=== PATIENT | male | born 1950 | race Caucasian/White ===

== ENCOUNTER 2020-04-03 19:23 | Emergency (ER) | payer OTHER ==
[~2020-04-03] VITALS: Ht 175.2 cm; Wt 90.7 kg
== END 2020-04-03 20:01 | disposition home or self-care (01) ==
LOC: ED 19:23
DX: T15.91XA Foreign body on external eye, part unspecified, right eye, initial encounter (principal); X58.XXXA Exposure to other specified factors, initial encounter; Y93.89 Activity, other specified; Y92.89 Other specified places as the place of occurrence of the external cause; Y99.8 Other external cause status

== ENCOUNTER 2021-06-06 19:00 | Emergency (ER) | payer OTHER ==
[~2021-06-06] VITALS: Ht 175.2 cm; Wt 90.7 kg
[2021-06-06] MEDS ORDERED: LIPITOR10 MG PO (20:15)
[2021-06-06] MEDS ORDERED: LISINOPRIL20 MG PO (20:15)
== END 2021-06-07 02:00 | disposition left against medical advice (07) ==
LOC: ED 19:00
DX: M79.89 Other specified soft tissue disorders (principal); Z53.21 Procedure and treatment not carried out due to patient leaving prior to being seen by health care provider

== ENCOUNTER → 2022-09-20 | Outpatient (CLI) | payer OTHER ==
[~2022-09-20] MED LIST: LIPITOR10 MG PO; LISINOPRIL20 MG PO
[2022-09-20 16:00] LABS: BASO # 0.1 10*3/uL (0.0-0.1); BASO % 0.8 % (0.0-1.0); EOS # 0.2 10*3/uL (0.0-0.4); EOS % 2.1 % (1.0-4.0); HEMATOCRIT 37.9 % (42.0-52.0); LYMPH # 1.5 10*3/uL (1.3-4.4); MEAN CELL VOLUME 84.8 fl (80.0-94.0); MEAN PLATELET VOLUME 10.2 fl (9.6-12.3); MONO # 0.6 10*3/uL (0.1-1.0); MONO % 8.5 % (3.0-9.0); NEUT # 4.9 10*3/uL (2.3-7.9); NEUT % 67.3 % (47.0-73.0); PLATELET COUNT AUTOMATED 236 10*3/uL (130-400); RED BLOOD COUNT 4.47 10*6/uL (4.50-5.90); WHITE BLOOD COUNT 7.3 10*3/uL (4.8-10.8)
[2022-09-20 16:16] LABS: ALKALINE PHOSPHATASE 83 U/L (46-116); BUN 19 mg/dl (9-23); CHLORIDE 108 mmol/L (98-107); CHOLESTEROL 106 mg/dL (<200); LDL CHOLESTEROL 28 mg/dL (9-159); POTASSIUM 3.9 mmol/L (3.4-5.1); SGPT/ALT 20 U/L (10-49); TOTAL PROTEIN 6.9 gm/dL (6.0-8.0)
[2022-09-21 15:07] LABS: ANTICARDIOLIPIN AB, IGG, QN <9 GPL U/mL (0-14); ANTICARDIOLIPIN AB, IGM, QN <9 MPL U/mL (0-12); CARDIOLIPIN AB IGA <9 APL U/mL (0-11)
[2022-09-22 15:06] LABS: BETA-2 GLYCOPROTEIN I AB,IGA <9 (0-25); BETA-2 GLYCOPROTEIN I AB,IGG <9 (0-20); BETA-2 GLYCOPROTEIN I AB,IGM <9 (0-32)
[2022-09-24 14:07] LABS: ACTIVATED PROTEIN C 2.9 ratio (2.2-3.5); ANTI-THROMBIN III ACTIVITY 129 % (75-135); LUPUS REFLEX INTERPRETATION Comment: (.); PLASMIN0GEN ACTIVITY 94 % (70-150); PROTEIN S, FREE 100 % (61-136)
== END | disposition home or self-care (01) ==
LOC: LAB 15:19
PROVIDERS: ATTEND Internal Medicine
DX: I82.402 Acute embolism and thrombosis of unspecified deep veins of left lower extremity (principal); E78.5 Hyperlipidemia, unspecified; D64.9 Anemia, unspecified

== ENCOUNTER → 2023-02-27 | Outpatient (CLI) | payer OTHER ==
[2023-02-27 08:26] LABS: BASO # 0.1 10*3/uL (0.0-0.1); BASO % 0.6 % (0.0-1.0); EOS # 0.1 10*3/uL (0.0-0.4); EOS % 1.5 % (1.0-4.0); HEMATOCRIT 38.1 % (42.0-52.0); LYMPH # 1.5 10*3/uL (1.3-4.4); LYMPH % 18.6 % (27.0-41.0); MEAN CELL VOLUME 84.7 fl (80.0-94.0); MEAN CORPUSCULAR HGB 28.7 pg (27.0-31.0); MEAN CORPUSCULAR HGB CONC 33.9 g/dl (33.0-37.0); MEAN PLATELET VOLUME 9.6 fl (9.6-12.3); MONO # 0.5 10*3/uL (0.1-1.0); MONO % 6.5 % (3.0-9.0); NEUT # 5.9 10*3/uL (2.3-7.9); NEUT % 72.4 % (47.0-73.0); PLATELET COUNT AUTOMATED 219 10*3/uL (130-400); RED CELL DISTRI WIDTH 13.1 % (0-14.5); WHITE BLOOD COUNT 8.2 10*3/uL (4.8-10.8)
[2023-02-27 09:05] LABS: ALKALINE PHOSPHATASE 83 U/L (46-116); BUN 25 mg/dl (9-23); CHLORIDE 109 mmol/L (98-107); CHOLESTEROL 114 mg/dL (<200); CPK 165 U/L (34-171); LDL CHOLESTEROL 43 mg/dL (9-159); POTASSIUM 4.1 mmol/L (3.4-5.1); SGPT/ALT 21 U/L (10-49); TOTAL PROTEIN 6.9 gm/dL (6.0-8.0); TRIGLYCERIDES 28 mg/dl (<150)
[2023-02-28 15:07] LABS: ANTICARDIOLIPIN AB, IGG, QN <9 GPL U/mL (0-14); ANTICARDIOLIPIN AB, IGM, QN <9 MPL U/mL (0-12); CARDIOLIPIN AB IGA <9 APL U/mL (0-11)
[2023-03-01 15:07] LABS: BETA-2 GLYCOPROTEIN I AB,IGA <9 (0-25); BETA-2 GLYCOPROTEIN I AB,IGG <9 (0-20); BETA-2 GLYCOPROTEIN I AB,IGM <9 (0-32)
[2023-03-04 15:06] LABS: ACTIVATED PROTEIN C 2.9 ratio (2.2-3.5); ANTI-THROMBIN III ACTIVITY 110 % (75-135); PLASMIN0GEN ACTIVITY 97 % (70-150); PROTEIN S, FREE 92 % (61-136); PTT-LA 27.6 sec (0.0-43.5)
[2023-03-04 16:08] LABS: LUPUS REFLEX INTERPRETATION Comment: (.)
== END | disposition home or self-care (01) ==
LOC: LAB 07:44
PROVIDERS: ATTEND Internal Medicine
DX: I10 Essential (primary) hypertension (principal); E78.5 Hyperlipidemia, unspecified; N40.1 Benign prostatic hyperplasia with lower urinary tract symptoms; I82.402 Acute embolism and thrombosis of unspecified deep veins of left lower extremity; M13.0 Polyarthritis, unspecified; E55.9 Vitamin D deficiency, unspecified; D64.9 Anemia, unspecified

== ENCOUNTER 2023-12-07 06:36 | Emergency (ER) | payer MEDICARE ==
[~2023-12-07] VITALS: Ht 175.2 cm; Wt 90.7 kg
[2023-12-07] MEDS ORDERED: TAMSULOSIN HCL0.4 MG PO (06:47)
[2023-12-07] MEDS ORDERED: CELECOXIB200 M1 PO (06:48)
[2023-12-07] MEDS ORDERED: XARELTO1 EACH PO (09:02)
== END 2023-12-07 09:22 | disposition home or self-care (01) ==
LOC: ED 06:36
DX: I82.411 Acute embolism and thrombosis of right femoral vein (principal); I82.431 Acute embolism and thrombosis of right popliteal vein; M10.9 Gout, unspecified; I10 Essential (primary) hypertension; Z88.5 Allergy status to narcotic agent

== ENCOUNTER 2024-03-19 02:08 | Emergency (ER) | payer MEDICARE ==
[~2024-03-19] VITALS: Ht 175.2 cm; Wt 88.5 kg
[~2024-03-19 02:08] MED LIST changes: +CELECOXIB200 M1 PO; +TAMSULOSIN HCL0.4 MG PO; +XARELTO1 EACH PO
[2024-03-19] MEDS ORDERED: LORazepam 1 MG TAB PO ONE (02:30)
== END 2024-03-19 02:37 | disposition home or self-care (01) ==
LOC: ED 02:08
DX: F41.9 Anxiety disorder, unspecified (principal); R20.0 Anesthesia of skin; M10.9 Gout, unspecified; I10 Essential (primary) hypertension; Z88.5 Allergy status to narcotic agent; Z90.49 Acquired absence of other specified parts of digestive tract; Z98.890 Other specified postprocedural states; Z86.718 Personal history of other venous thrombosis and embolism

== ENCOUNTER → 2024-05-07 | Outpatient (CLI) | payer MEDICARE ==
[2024-05-07 10:05] LABS: BASO # 0.1 10*3/uL (0.0-0.1); BASO % 0.9 % (0.0-1.0); HEMATOCRIT 35.2 % (42.0-52.0); LYMPH % 26.9 % (27.0-41.0); MEAN CELL VOLUME 86.5 fl (80.0-94.0); MEAN CORPUSCULAR HGB CONC 32.4 g/dl (33.0-37.0); MEAN PLATELET VOLUME 9.8 fl (9.6-12.3); MONO # 0.6 10*3/uL (0.1-1.0); MONO % 7.4 % (3.0-9.0); NEUT # 4.9 10*3/uL (2.3-7.9); NEUT % 64.3 % (47.0-73.0); PLATELET COUNT AUTOMATED 235 10*3/uL (130-400); RED BLOOD COUNT 4.07 10*6/uL (4.50-5.90); WHITE BLOOD COUNT 7.6 10*3/uL (4.8-10.8)
[2024-05-11 08:06] LABS: CREATININE, RANDOM URINE 82.7 mg/dL (Not Estab.)
[2024-05-11 20:07] LABS: 5-HIAA, QNT, RANDOM URINE 4.7 (0.0-6.9); 5-HIAA, URINE 3.9 mg/L (Undefined)
== END | disposition home or self-care (01) ==
LOC: LAB 09:04
PROVIDERS: ATTEND Internal Medicine
DX: R21 Rash and other nonspecific skin eruption (principal)

== ENCOUNTER → 2024-05-30 | Outpatient (CLI) | payer MEDICARE ==
[2024-05-30 10:27] LABS: BILIRUBIN Negative (Negative); BLOOD Negative (Negative); CLARITY Clear (Clear); COLOR Yellow (Yellow); GLUCOSE Negative (Negative); KETONE Negative (Negative); LEUKO ESTERASE 1+ (Negative); NITRITE Negative (Negative); PH 5.5 (4.5-8.0); SPECIFIC GRAVITY 1.015 (1.001-1.030); UROBILINOGEN 0.2 E.U./dl (0.0-1.0)
[2024-05-30 10:41] LABS: BASO # 0.1 10*3/uL (0.0-0.1); BASO % 0.6 % (0.0-1.0); HEMATOCRIT 36.3 % (42.0-52.0); MEAN CELL VOLUME 86.4 fl (80.0-94.0); MEAN CORPUSCULAR HGB 28.6 pg (27.0-31.0); MEAN CORPUSCULAR HGB CONC 33.1 g/dl (33.0-37.0); MEAN PLATELET VOLUME 10.1 fl (9.6-12.3); MONO # 0.7 10*3/uL (0.1-1.0); MONO % 7.9 % (3.0-9.0); NEUT # 5.6 10*3/uL (2.3-7.9); NEUT % 67.6 % (47.0-73.0); PLATELET COUNT AUTOMATED 246 10*3/uL (130-400); RED CELL DISTRI WIDTH 14.2 % (0-14.5); WHITE BLOOD COUNT 8.3 10*3/uL (4.8-10.8)
[2024-05-30 10:45] LABS: EPITHELIAL CELLS 0-2
[2024-05-30 10:46] LABS: BACTERIA TRACE; RBC 0-2 rbc/hpf (0-2)
[2024-05-30 10:49] LABS: URIC ACID 6.1 mg/dL (3.7-9.2)
== END | disposition home or self-care (01) ==
LOC: LAB 09:35
PROVIDERS: ATTEND Internal Medicine
DX: N40.1 Benign prostatic hyperplasia with lower urinary tract symptoms (principal); M10.9 Gout, unspecified; E78.5 Hyperlipidemia, unspecified; D64.9 Anemia, unspecified; R60.9 Edema, unspecified

== ENCOUNTER → 2025-03-19 | Outpatient (CLI) | payer MEDICARE ==
[2025-03-19 12:35] LABS: BASO # 0.0 10*3/uL (0.0-0.1); BASO % 0.3 % (0.0-1.0); EOS # 0.0 10*3/uL (0.0-0.4); EOS % 0.3 % (1.0-4.0); MEAN CELL VOLUME 85.6 fl (80.0-94.0); MEAN CORPUSCULAR HGB 28.5 pg (27.0-31.0); MEAN PLATELET VOLUME 9.5 fl (9.6-12.3); MONO # 0.7 10*3/uL (0.1-1.0); MONO % 5.2 % (3.0-9.0); NEUT # 10.5 10*3/uL (2.3-7.9); NEUT % 79.8 % (47.0-73.0); NUCLEATED RED BLOOD CELL 0.0 % (0.0-0.0); NUCLEATED RED BLOOD CELL 0.0 10*3/uL (0.0-0.0); PLATELET COUNT AUTOMATED 227 10*3/uL (130-400); RED CELL DISTRI WIDTH 13.8 % (0-14.5)
[2025-03-19 12:35] LABS: BILIRUBIN Negative (Negative); BLOOD Negative (Negative); CLARITY Clear (Clear); COLOR Yellow (Yellow); KETONE Negative (Negative); LEUKO ESTERASE 1+ (Negative); NITRITE Negative (Negative); PH 5.5 (4.5-8.0); SPECIFIC GRAVITY 1.010 (1.001-1.030); UROBILINOGEN 0.2 E.U./dl (0.0-1.0)
[2025-03-19 13:16] LABS: VITAMIN D, 25-HYDROXY 39.0 ng/mL (30-100)
[2025-03-19 13:18] LABS: BUN 30 mg/dl (9-23); LDL CHOLESTEROL 34 mg/dL (9-159); SGPT/ALT 20 U/L (5-49)
[2025-03-19 13:55] LABS: BACTERIA TRACE
== END | disposition home or self-care (01) ==
LOC: LAB 11:36
PROVIDERS: ATTEND Internal Medicine
DX: Z12.5 Encounter for screening for malignant neoplasm of prostate (principal); E78.5 Hyperlipidemia, unspecified; N40.1 Benign prostatic hyperplasia with lower urinary tract symptoms; E55.9 Vitamin D deficiency, unspecified; D64.9 Anemia, unspecified; M10.9 Gout, unspecified; M13.0 Polyarthritis, unspecified